=== PATIENT | female | born 1955 | race African-American/Black ===

== ENCOUNTER 2016-12-22 15:29 | Observation (INO) | payer OTHER ==
[~2016-12-22] VITALS: Ht 167.6 cm; Wt 56.0 kg
[2016-12-22 15:31] VITALS: BP 132/71; PULSE 80; RESP 17; TEMP 97.6; O2SAT 99
--- NOTE | 2016-12-22 15:37 | PD ---
Physical Exam Date Seen by Provider: Dec 22, 2016 Time Seen by Provider: 15:32 Narrative Pt is a 61 year old female presenting to the ED with chest tightness, lightheadedness, SOB. Pt states she feels as if something is sitting on her chest. She reports fatigue as well. No exacerbating or alleviating factors. Pt had episode of CHF and cardiomyopathy secondary to reaction to chemotherapy. EF was 35% rebounded to 48%. Pt has taken a full ASA prior to arrival. 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 VSS. MDM Supervised Visit with AURELIO: Kathy Garcia Dec 22, 2016 15:37
[2016-12-22] MEDS ORDERED: SODIUM CHLORIDE 0.9% FLUSH 10 ML FLUSH IVF PRN (16:15)
[2016-12-22 16:31] VITALS: O2SAT 100
--- NOTE | 2016-12-22 16:38 | PD ---
HPI Chief Complaint: Chest Pain Time Seen by Provider: 16:13 Travel History International Travel<30 days: No Contact w/Intl Traveler<30days: No Traveled to known affect area: No History of Present Illness HPI This is a 61-year-old female who presents to the emergency department with chest heaviness and difficulty breathing that's been going on for 3-4 days, intermittent, worse with exertion and improved with rest, nonradiating. She says she's been feeling generally weak and feels like she gets tired easily. She did have some sweating 2 nights ago and does say she's had intermittent nausea. She has a history of hyperlipidemia but no hypertension, diabetes and no smoking history. She does have a history of kidney stones and says that on the way here in the car she started to feel some back discomfort mostly in the lower in the middle. She says it feels similar to kidney stones in the past. The patient has not had a stress test in several years. 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 PFSH Past Medical History Chemotherapy: Yes ?: Not Social History Alcohol Use: No Tobacco Use: No Substance Use: No Allergies-Medications (Allergen,Severity, Reaction): Coded Allergies: Sulfa (Verified Allergy, Severe, ANALYPHYLAXIS, 12/22/16) Review of Systems Except as stated in HPI: all other systems reviewed are Neg Physical Exam Narrative GENERAL:Well appearing, no acute distress SKIN: Focused skin assessment warm and dry. HEAD: Atraumatic. Normocephalic. EYES: Pupils equal and round. No injection or drainage. ENT: Moist mucous membranes NECK: Trachea midline. CARDIOVASCULAR: Regular rate and rhythm. No murmur appreciated. RESPIRATORY: Clear to auscultation. Breath sounds equal bilaterally. GASTROINTESTINAL: Abdomen soft, non-tender, nondistended. MUSCULOSKELETAL: No obvious deformities. NEUROLOGICAL: Awake and alert. No obvious cranial nerve deficits. Moving all extremities. PSYCHIATRIC: Appropriate mood and affect; insight and judgment normal. Data Data Last Documented VS Vital Signs Date Time Temp Pulse Resp B/P Pulse Ox O2 Delivery O2 Flow Rate FiO2 12/22/16 16:31 100 Room Air 12/22/16 16:01 71 18 12/22/16 15:31 97.6 132/71 Orders Electrocardiogram (12/22/16 15:32) Electrocardiogram (12/22/16 16:13) Complete Blood Count With Diff (12/22/16 16:13) Comprehensive Metabolic Panel (12/22/16 16:13) D-Dimer (12/22/16 16:13) Troponin I (12/22/16 16:13) Chest, Single Ap (12/22/16 16:13) Ecg Monitoring (12/22/16 16:13) Bilateral Bp Monitoring (12/22/16 16:13) Iv Access Insert/Monitor (12/22/16 16:13) Oximetry (12/22/16 16:13) Oxygen Administration (12/22/16 16:13) Sodium Chloride 0.9% Flush (Ns Flush) (12/22/16 16:15) Lipase (12/22/16 16:27) Urinalysis - C+S If Indicated (12/22/16 16:27) B-Type Natriuretic Peptide (12/22/16 16:38) MDM Medical Decision Making Medical Screen Exam Complete: Yes Emergency Medical Condition: Yes Interpretation(s) EKG: Normal sinus rhythm, T-wave inversions in V1 and V2 with some flattening in aVL Differential Diagnosis Acute coronary syndrome, pulmonary embolism, pneumonia, bronchitis, kidney stone Narrative Course This is a 61-year-old female who presents to the emergency department with exertional dyspnea and some chest discomfort. She does have a history of hyperlipidemia, chemotherapy related cardiomyopathy and a remote history of breast cancer. She was placed on a monitor and an IV was established. EKG was obtained which demonstrates some nonspecific changes. She received aspirin prior to arrival. Labs will be obtained. They will be followed up by Dr. Frey. If reassuring, patient can be placed in observation in the chest pain center for serial cardiac enzymes and likely stress testing in the morning. Rianna Guevara MD Dec 22, 2016 16:38
[2016-12-22 16:56] LABS: AUTOMATED NEUTROPHIL # 3.5 TH/MM3 (1.8-7.7); BASOPHIL % 0.8 % (0.0-2.0); EOSINOPHIL # 0.1 TH/MM3 (0-0.4); EOSINOPHIL % 2.3 % (0.0-4.0); HEMATOCRIT 35.2 % (35.0-46.0); HEMO FLAGS DIFF FINAL; LYMPH % 19.9 % (9.0-44.0); LYMPHOCYTE # 1.2 TH/MM3 (1.0-4.8); MEAN CELL VOLUME 94.5 FL (80.0-100.0); MEAN CORPUSCULAR HEMOGLOBIN 31.2 PG (27.0-34.0); MONO % 16.6 % (0.0-8.0); NEUT % 60.4 % (16.0-70.0); PLATELET COUNT 217 TH/MM3 (150-450); RED BLOOD COUNT 3.73 MIL/MM3 (4.00-5.30); RED CELL DISTRIBUTION WIDTH 12.7 % (11.6-17.2); WHITE BLOOD COUNT 5.8 TH/MM3 (4.0-11.0)
[2016-12-22 17:05] LABS: BACTERIA, URINE RARE /hpf; BLOOD, URINE NEG (NEG); CALCIUM OXALATE CRYSTALS,URINE FEW /hpf; COMMENT (UR) CULT NOT INDICATED; CULTURE IF INDICATED CULT NOT INDICATED; GLUCOSE,URINE NEG (NEG); HYALINE CAST, URINE 18 /lpf (RARE); KETONE, URINE NEG (NEG); MUCUS URINE FEW /lpf (OCC); NITRITE,URINE NEG (NEG); SQUAMOUS EPITHELIAL CELL URINE 1 /hpf (0-5); URINE COLOR YELLOW (YELLW/STRAW)
[2016-12-22 17:12] LABS: ANION GAP 6 MEQ/L (5-15); AST (GOT) 18 U/L (15-37); BICARBONATE 29.2 MEQ/L (21.0-32.0); BLOOD UREA NITROGEN 19 MG/DL (7-18); CHLORIDE 106 MEQ/L (98-107); GLOMERULAR FILTRATION RATE 58 ML/MIN (>89); POTASSIUM 4.1 MEQ/L (3.5-5.1); SODIUM (NA) 141 MEQ/L (136-145)
[2016-12-22 17:16] LABS: ALKALINE PHOSPHATASE 95 U/L (45-117); ALT (GPT) 24 U/L (10-53); TOTAL BILIRUBIN ADULT 0.3 MG/DL (0.2-1.0)
--- NOTE | 2016-12-22 17:23 | RADRPT ---
EXAM DATE/TIME: 12/22/2016 16:45 [facility] COMPARISON: No previous studies available for comparison. INDICATIONS : Chest pressure and shortness of breath. MEDICAL HISTORY : Chronic obstructive pulmonary disease. SURGICAL HISTORY : Mastectomy, bilateral. ENCOUNTER: Initial ACUITY: 2 days PAIN SCORE: 10/10 LOCATION: middle chest. FINDINGS: A single view of the chest demonstrates the lungs to be symmetrically aerated without evidence of mas s, infiltrate or effusion. The cardiomediastinal contours are unremarkable. Osseous structures are intact. There are multiple surgical clips in both axillary regions. CONCLUSION: No acute disease. Jim Vang MD on December 22, 2016 at 17:20 Board Certified Radiologist. This report was verified electronically.
[2016-12-22] MEDS ORDERED: SODIUM CHLORIDE 0.9% FLUSH 10 ML FLUSH IV FLUSH PRN (18:15)
--- NOTE | 2016-12-22 18:18 | PD ---
Data Data Last Documented VS Vital Signs Date Time Temp Pulse Resp B/P Pulse Ox O2 Delivery O2 Flow Rate FiO2 12/22/16 18:24 68 16 123/71 98 Room Air 12/22/16 15:31 97.6 Orders Electrocardiogram (12/22/16 15:32) Electrocardiogram (12/22/16 16:13) Complete Blood Count With Diff (12/22/16 16:13) Comprehensive Metabolic Panel (12/22/16 16:13) D-Dimer (12/22/16 16:13) Troponin I (12/22/16 16:13) Chest, Single Ap (12/22/16 16:13) Ecg Monitoring (12/22/16 16:13) Bilateral Bp Monitoring (12/22/16 16:13) Iv Access Insert/Monitor (12/22/16 16:13) Oximetry (12/22/16 16:13) Oxygen Administration (12/22/16 16:13) Sodium Chloride 0.9% Flush (Ns Flush) (12/22/16 16:15) Urinalysis - C+S If Indicated (12/22/16 16:27) B-Type Natriuretic Peptide (12/22/16 16:38) Lipase (12/22/16 16:30) Admit Order (Ed Use Only) (12/22/16 ) Vital Signs (Adult) Q4H (12/22/16 18:12) Cardiac Rhythm .As Directed (12/22/16 18:12) Notify Dr: Other .PRN (12/22/16 18:12) Notify Parameters (12/22/16 18:12) Resp Oxygen Nasal Cannula (12/22/16 ) Ckmb (Isoenzyme) Profile (12/22/16 19:30) Ckmb (Isoenzyme) Profile (12/22/16 22:30) Troponin I (12/22/16 19:30) Troponin I (12/22/16 22:30) Electrocardiogram (12/22/16 19:30) Electrocardiogram (12/22/16 22:30) ^ Obtain (12/22/16 18:12) Sodium Chloride 0.9% Flush (Ns Flush) (12/22/16 18:15) Sodium Chloride 0.9% Flush (Ns Flush) (12/22/16 21:00) Nitroglycerin 2% Oint (Nitroglycerin 2% (12/23/16 00:00) String Laster / Telemetry SHANTI.Q8H (12/22/16 18:12) Activity Bed Rest With Brp (12/22/16 18:12) Npo After Midnight W/ Po Meds (12/22/16 Dinner) Labs Laboratory Tests Test 12/22/16 12/22/16 16:30 16:35 White Blood Count 5.8 TH/MM3 Red Blood Count 3.73 MIL/MM3 Hemoglobin 11.6 GM/DL Hematocrit 35.2 % Mean Corpuscular Volume 94.5 FL Mean Corpuscular Hemoglobin 31.2 PG Mean Corpuscular Hemoglobin 33.0 % Concent Red Cell Distribution Width 12.7 % Platelet Count 217 TH/MM3 Mean Platelet Volume 8.1 FL Neutrophils (%) (Auto) 60.4 % Lymphocytes (%) (Auto) 19.9 % Monocytes (%) (Auto) 16.6 % Eosinophils (%) (Auto) 2.3 % Basophils (%) (Auto) 0.8 % Neutrophils # (Auto) 3.5 TH/MM3 Lymphocytes # (Auto) 1.2 TH/MM3 Monocytes # (Auto) 1.0 TH/MM3 Eosinophils # (Auto) 0.1 TH/MM3 Basophils # (Auto) 0.0 TH/MM3 CBC Comment DIFF FINAL Differential Comment D-Dimer Quantitative (PE/DVT) 0.26 MG/L FEU Sodium Level 141 MEQ/L Potassium Level 4.1 MEQ/L Chloride Level 106 MEQ/L Carbon Dioxide Level 29.2 MEQ/L Anion Gap 6 MEQ/L Blood Urea Nitrogen 19 MG/DL Creatinine 1.14 MG/DL Estimat Glomerular Filtration 58 ML/MIN Rate Random Glucose 91 MG/DL Calcium Level 9.0 MG/DL Total Bilirubin 0.3 MG/DL Aspartate Amino Transf 18 U/L (AST/SGOT) Alanine Aminotransferase 24 U/L (ALT/SGPT) Alkaline Phosphatase 95 U/L Troponin I LESS THAN 0.02 NG/ML Total Protein 7.2 GM/DL Albumin 3.5 GM/DL Lipase 139 U/L Urine Color YELLOW Urine Turbidity CLEAR Urine pH 5.0 Urine Specific [place] 1.022 Urine Protein TRACE mg/dL Urine Glucose (UA) NEG mg/dL Urine Ketones NEG mg/dL Urine Occult Blood NEG Urine Nitrite NEG Urine Bilirubin NEG Urine Urobilinogen LESS THAN 2.0 MG/DL Urine Leukocyte Esterase TRACE Urine RBC 2 /hpf Urine WBC 1 /hpf Urine Squamous Epithelial 1 /hpf Cells Urine Calcium Oxalate Crystals FEW /hpf Urine Bacteria RARE /hpf Urine Hyaline Casts 18 /lpf Urine Mucus FEW /lpf Microscopic Urinalysis Comment CULT NOT INDICATED MDM Supervised Visit with AURELIO: No Narrative Course Patient care assumed from Dr. Guevara at 1700. This is a 61-year-old female presents emergency department for evaluation of chest tightness and shortness of breath which is exertional. She does have a history of breast cancer which is a remission she's not had chemotherapy in years. She did have a d-dimer was negative initial troponin negative. Her EKG was reviewed I me and it shows a nonspecific T-wave inversions in V1 and V2 otherwise was a normal EKG. Chest x- ray was negative. On my physical exam patient is calm and cooperative and comfortable. Cardiopulmonary exam shows no murmurs gallops or rubs, no carotid bruits, jugular clear to auscultation, pulses motor and sensory intact distally in all 4 extremities and equal bilaterally. No edema is seen in the lower extremity's. 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 Dr. Velásquez was called and is seen the patient. I have not had an opportunity to discuss with her the patient's care as of yet. According to the patient and her the plan was for ruling out pulmonary embolism and then observation the chest pain center which they're agreeable to at this time. I placed orders for observation to chest pain center under Dr. Velásquez. Nitropaste is ordered. Diagnosis Primary Impression: Chest pain Qualified Code: R07.9 - Chest pain, unspecified type Admitting Information Admitting Physician Requests: Observation Condition: Stable Frank Frey MD Dec 22, 2016 18:18
[2016-12-22 18:24] VITALS: BP 123/71; PULSE 68; RESP 16; O2SAT 98
[2016-12-22] MEDS ORDERED: ANAS1TAB PO (20:07)
[2016-12-22] MEDS ORDERED: NEXI20CA PO (20:07)
[2016-12-22] MEDS ORDERED: CHOL100025 CHEW (20:08)
[2016-12-22] MEDS ORDERED: BIOT1SUB PO (20:08)
[2016-12-22] MEDS ORDERED: VENL75CA44 PO (20:08)
[2016-12-22] MEDS: SODIUM CHLORIDE 0.9% FLUSH 10 ML FLUSH IV FLUSH SCH (21:25)
[2016-12-22 21:46] LABS: CREATINE KINASE 47 U/L (26-192)
[2016-12-22] MEDS ORDERED: ZOLPIDEM TARTRATE 10 MG TAB PO PRN (22:00)
[2016-12-22 23:17] LABS: CREATINE KINASE 44 U/L (26-192)
[2016-12-22] MEDS: NITROGLYCERIN 2% OINT 1 GM PACKET TOP SCH (23:31)
[2016-12-23 01:56] VITALS: O2SAT 98
[2016-12-23 02:12] VITALS: PULSE 73
[2016-12-23] MEDS: NITROGLYCERIN 2% OINT 1 GM PACKET TOP SCH ×2 (06:00→12:29)
[2016-12-23 08:01] VITALS: BP 116/71; PULSE 67; RESP 20; TEMP 98.2; O2SAT 99
--- NOTE | 2016-12-23 08:06 | HHI.HP ---
HPI Primary Care Physician Ashok Morrow MD Chief Complaint Chest pressure/tightness History of Present Illness 51-year-old female presents to emergency room for further evaluation of chest discomfort. Onset 3-4 days ago. Patient has vague symptoms. She does remember some chest pressure and tightness with difficult to take a deep breath. Episodes were intermittent since weekend. Laying down helps pain. [place] lightheaded at one point over the weekend however she was at a alliance party and states it was "hot outside." No diaphoresis or vomiting. No known precipitating or relieving factors. Remote history of breast cancer has been in remission for 9 years however endorses chemotherapy induced cardiomyopathy which has since resolved. Review of Systems General: No fatigue,weakness, fever, chills, recent illness change HEENT: No RICHARDSON, no nasal congestion or drainage, no dysphasia CV: As stated above. No current chest pain or pressure. No palpitations, intermittent leg pain. Brief episode of dizziness over the weekend. RESP: No SOB, cough, wheeze, or URI. GI: No nausea, vomiting, bowel changes, diarrhea, constipation, or pain. : No dysuria, urgency, frequency EXT: No lower leg edema, no paraesthesias MS: No discomfort or change in ROM NEURO: No change in memory, difficulty with balance, LOC, motor/sensory deficits PSYCH: No anxiety, depression, or situational stress SKIN: No rashes, no concerning lesions Past Family Social History Allergies: Coded Allergies: Sulfa (Verified Allergy, Severe, ANALYPHYLAXIS, 12/22/16) Past Medical History Breast cancer (chemotherapy and radiation, in remission 9 years) Reported Medications Reported Meds & Active Scripts Active Reported Vitamin D3 (Cholecalciferol) 1,000 Unit Chew 1,000 Units CHEW DAILY Biotin 5,000 Mcg Subl 10,000 Mcg PO Venlafaxine ER 24 HR (Venlafaxine HCl) 75 Mg Cap 75 Mg PO HS Nexium (Esomeprazole DR) 20 Mg Capdr 20 Mg PO DAILY Anastrozole 1 Mg Tab 1 Mg PO HS Active Ordered Medications Current Medications Medications (Trade) Dose Ordered Sig/Eleonora Route Start Time Stop Time Status Last Admin (Nitroglycerin 2% Oint) 0.5 inch Q6HR TOP 12/23/16 00:00 (Ambien) 10 mg HS PRN PO 12/22/16 22:00 12/22/16 22:38 Family History Noncontributory for early onset cardiovascular disease. States mother has history of hyperlipidemia Social History No known hypertension, diabetes, hyperlipidemia. Lifelong nonsmoker. Denies any alcohol or drug use. She is active daily. Does not perform any additional exercise. Past cardiac testing No recent cardiac testing. Physical Exam Vital Signs Vital Signs Date Time Temp Pulse Resp B/P Pulse Ox O2 Delivery O2 Flow Rate FiO2 12/23/16 08:01 98.2 67 20 116/71 99 12/23/16 02:12 73 12/23/16 01:56 98 21 12/22/16 18:24 68 16 123/71 98 Room Air 12/22/16 16:31 100 Room Air 12/22/16 16:23 100 Room Air 12/22/16 16:01 71 18 100 Room Air 12/22/16 15:31 97.6 80 17 132/71 99 Physical Exam GENERAL: Alert WN, WD, NAD, pleasant, female HEAD: NC, AT EYES: Sclera clear, conjunctiva without injection, pupils equal and round NECK: Supple, no masses, trachea midline CV: RRR, without murmur, rub, gallop, no JVD, S1-S2 no S3-S4. RESP: Clear lungs throughout bilateral, no crackles, wheeze, rhonchi, symmetrical chest rise, nonlabored, able to speak in full sentences ABD: Soft, NT, ND, no masses, positive bowel tones EXT: Pulses +24, no dependent edema MS: Normal tone 4 extremities, nontender, no obvious deformities, full range of motion NEURO: CN II through CN XII grossly intact, motor strength 5/5, gait WNL PSYCH: A+O 3, pleasant affect, appropriate speech, appropriate mood and affect , insight and judgment SKIN: Normal turgor, normal texture, no lesions, no rashes, brisk cap refill, even hair distribution Laboratory Laboratory Tests Test 12/22/16 12/22/16 12/22/16 12/22/16 16:30 16:35 19:40 22:30 White Blood Count 5.8 Red Blood Count 3.73 Hemoglobin 11.6 Hematocrit 35.2 Mean Corpuscular Volume 94.5 Mean Corpuscular Hemoglobin 31.2 Mean Corpuscular Hemoglobin 33.0 Concent Red Cell Distribution Width 12.7 Platelet Count 217 Mean Platelet Volume 8.1 Neutrophils (%) (Auto) 60.4 Lymphocytes (%) (Auto) 19.9 Monocytes (%) (Auto) 16.6 Eosinophils (%) (Auto) 2.3 Basophils (%) (Auto) 0.8 Neutrophils # (Auto) 3.5 Lymphocytes # (Auto) 1.2 Monocytes # (Auto) 1.0 Eosinophils # (Auto) 0.1 Basophils # (Auto) 0.0 CBC Comment DIFF FINAL Differential Comment D-Dimer Quantitative (PE/DVT) 0.26 Sodium Level 141 Potassium Level 4.1 Chloride Level 106 Carbon Dioxide Level 29.2 Anion Gap 6 Blood Urea Nitrogen 19 Creatinine 1.14 Estimat Glomerular Filtration 58 Rate Random Glucose 91 Calcium Level 9.0 Total Bilirubin 0.3 Aspartate Amino Transf 18 (AST/SGOT) Alanine Aminotransferase 24 (ALT/SGPT) Alkaline Phosphatase 95 Troponin I LESS THAN 0.02 LESS THAN 0.02 LESS THAN 0.02 B-Type Natriuretic Peptide 25 Total Protein 7.2 Albumin 3.5 Lipase 139 Urine Color YELLOW Urine Turbidity CLEAR Urine pH 5.0 Urine Specific [place] 1.022 Urine Protein TRACE Urine Glucose (UA) NEG Urine Ketones NEG Urine Occult Blood NEG Urine Nitrite NEG Urine Bilirubin NEG Urine Urobilinogen LESS THAN 2.0 Urine Leukocyte Esterase TRACE Urine RBC 2 Urine WBC 1 Urine Squamous Epithelial 1 Cells Urine Calcium Oxalate Crystals FEW Urine Bacteria RARE Urine Hyaline Casts 18 Urine Mucus FEW Microscopic Urinalysis Comment CULT NOT INDICATED Total Creatine Kinase 47 44 Result Diagram: 12/22/16 1630 12/22/16 1630 Imaging Last Impressions Chest X-Ray 12/22/16 1613 Signed Impressions: Service Date/Time: Thursday, December 22, 2016 16:45 - CONCLUSION: No acute disease. Jim Vang MD Course EKGs 3 EKG show normal sinus bradycardic rhythm, normal axis, no ST or T-segment changes Assessment and Plan Assessment and Plan #1 Chest painadmitted to chest pain center. Ruled out with 3 sets of EKGs, cardiac enzymes, and monitored overnight. Was seen and evaluated by Dr. Owen Barnhart. 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 If cardiac testing is unremarkable will discharge her later afternoon. Will continue home medication. Claudia Payne Dec 23, 2016 08:06
[2016-12-23] MEDS: SODIUM CHLORIDE 0.9% FLUSH 10 ML FLUSH IV FLUSH SCH (09:05)
--- NOTE | 2016-12-23 10:51 | EKG ---
Date Performed: 12/22/2016 Time Performed: 15:46:37 PTAGE: 61 years EKG: Sinus rhythm LOW QRS VOLTAGE IN PRECORDIAL LEADS BORDERLINE ECG Compared to prior tracing no significant change DOCTOR: Wandy Velásquez Interpretating Date/Time 12/23/2016 10:50:45
--- NOTE | 2016-12-23 10:53 | EKG ---
Date Performed: 12/22/2016 Time Performed: 19:34:36 PTAGE: 61 years EKG: Sinus rhythm LOW QRS VOLTAGE IN PRECORDIAL LEADS BORDERLINE ECG PREVIOUS TRACING : 12/22/2016 15.46 Compared to prior tracing no significant change DOCTOR: Wandy Velásquez Interpretating Date/Time 12/28/2016 08:50:40
--- NOTE | 2016-12-23 10:53 | EKG ---
Date Performed: 12/22/2016 Time Performed: 19:46:58 PTAGE: 61 years EKG: Sinus rhythm LOW QRS VOLTAGE IN PRECORDIAL LEADS ST ELEVATION, CONSIDER INFERIOR INJURY ACUTE OK PREVIOUS TRACING : 12/22/2016 19.34 DOCTOR: Wandy Velásquez Interpretating Date/Time 12/23/2016 10:51:56
--- NOTE | 2016-12-23 12:52 | RADRPT ---
EXAM DATE/TIME: 12/23/2016 10:29 [facility] COMPARISON: No previous studies available for comparison. INDICATIONS : Chest tightness and cardiomyopathy. Congestive heart failure. DOSE: 25.8 mCi Tc99m Myoview at stress 8.1 mCi Tc99m Myoview at rest REST HEART RATE: 91 BPM TARGET HEART RATE: 133 BPM MAX HEART RATE: 167 BPM REST BLOOD PRESSURE: 112/88 mmHg MAX BLOOD PRESSURE: 158/68 mmHg EJECTION FRACTION: > 70% MEDICAL HISTORY : Hypercholesterolemia. Chemotherapy. SURGICAL HISTORY : None. ENCOUNTER: Initial ACUITY: 1 day PAIN SCALE: 3/10 LOCATION: Bilateral chest TECHNIQUE: The patient underwent upright treadmill exercise in the chest pain center. Continuous ECG tracing wa s monitored during stress. Gated SPECT imaging was performed after stress, and conventional SPECT im aging was performed at rest. The examination was performed on a SPECT/CT scanner, both attenuation-c orrected and non-corrected datasets were reviewed. FINDINGS: Patient was exercised by treadmill achieving 8 maximum rate of 157 beats per minute the target of 157 beats per minute. Stress was adequate. The best perfused myocardium is the anterior septal region followed by the inferior wall. Moderate gu t activity does obscure the inferior wall. There is no fixed defect to suggest infarction. There is no redistribution suggest ischemia. There is normal wall motion with ejection fraction of greater than 70%. CONCLUSION: Negative for stress-induced ischemia. Ejection fraction of greater than 70%. RISK CATEGORY: Low (<1% Annual Mortality Rate) Paxton Gomez MD FACR on December 23, 2016 at 12:47 Board Certified Radiologist. This report was verified electronically.
--- NOTE | 2016-12-23 13:01 | HHI.DCPOC ---
Discharge Care Plan Diagnosis: (1) Atypical chest pain Goals to Promote Your Health * To prevent worsening of your condition and complications * To maintain your health at the optimal level Directions to Meet Your Goals Take your medications as prescribed Follow your dietary instruction Follow activity as directed Keep your appointments as scheduled Take your immunizations and boosters as scheduled If your symptoms worsen call your PCP, if no PCP go to Urgent Care Center or Emergency Room Smoking is Dangerous to Your Health. Avoid second hand smoke Call the 24-hour hour crisis hotline for domestic abuse at Claudia Payne Dec 23, 2016 13:01
--- NOTE | 2016-12-23 16:57 | EKG ---
Date Performed: 12/22/2016 Time Performed: 22:30:27 PTAGE: 61 years EKG: SINUS BRADYCARDIA LOW QRS VOLTAGE IN PRECORDIAL LEADS BORDERLINE ECG PREVIOUS TRACING : 12/22/2016 19.46 Since previous tracing, no significant change noted DOCTOR: Owen Barnhart Interpretating Date/Time 12/23/2016 16:56:26
--- NOTE | 2016-12-23 17:00 | TR ---
Date Performed: 12/23/2016 Time Performed: 11:10:24 DOCTOR: Owen Barnhart DRUG LIST: CLINICAL HISTORY: REASON FOR TEST: REASON FOR ENDING: OBSERVATION: CONCLUSION: Samson protocol completed. Stopped sec to exceeding target heart rate. Maximum DP=581 Target UY=598 Maximum NI=984/70 Total Exercise Time=2:31. No ecotpy. No reprod chest pain. Normal bp response. No st t segment changes to sugg ischemia. Recovery quick and unremarkable. Nuclear images pending. COMMENTS: See corresponding Nuclear Medicine report. No evidence of ischemia by ECG criteria
== END 2016-12-23 16:26 | disposition home or self-care (01) ==
LOC: NEPD 15:29 → NEDA 18:16 → UNDOADMOB 18:16 → NEPFCDU 20:50
PROVIDERS: ADMIT Internal Medicine Interventional Cardiology; ATTEND Internal Medicine Interventional Cardiology
DX: R07.9 Chest pain, unspecified (principal); R06.02 Shortness of breath; R42 Dizziness and giddiness; T45.1X5A Adverse effect of antineoplastic and immunosuppressive drugs, initial encounter; I42.7 Cardiomyopathy due to drug and external agent; R53.1 Weakness; E78.5 Hyperlipidemia, unspecified; Z87.442 Personal history of urinary calculi; Z85.3 Personal history of malignant neoplasm of breast; R06.09 Other forms of dyspnea
CPT/HCPCS: 71010; 78452; 80053; 81001; 82550; 83690; 83880; 84484; 85025; 85379; 93005; 93017; 99285; A9502; G0378